=== PATIENT | male | born 1970 | race Hispanic/Latino ===

== ENCOUNTER 2020-01-30 22:17 | Emergency (ER) | payer OTHER ==
[2020-01-30] MEDS ORDERED: ASPIRIN 325 MG TABLET ONE (22:26)
[2020-01-30 22:52] LABS: BASOPHILS % (AUTO) 0.1 % (0.0-5.0); HEMATOCRIT 42.5 % (42-54); LYMPHOCYTES % (AUTO) 25.9 % (21.0-51.0); MEAN CORPUSCULAR HEMOGLOBIN 30.5 pg (27.0-33.0); MEAN CORPUSCULAR HGB CONC 34.1 g/dL (32.0-36.0); MEAN CORPUSCULAR VOLUME 89.5 fL (79-99); MONOCYTES % (AUTO) 8.8 % (3.0-13.0); NEUTROPHILS % (AUTO) 63.9 % (40.0-77.0); PLATELET COUNT (AUTO) 131 K/uL (130-400); RED BLOOD CELL COUNT(AUTO) 4.75 MIL/uL (4.50-6.20); RED CELL DISTRIBUTION WIDTH 12.6 % (11.0-15.5); WHITE BLOOD COUNT (AUTO) 7.2 K/uL (4.8-10.8)
[2020-01-30 23:05] LABS: CREATININE 0.9 mg/dL (0.5-1.5); POTASSIUM 3.3 mmol/L (3.5-5.1)
[2020-01-30 23:08] LABS: INR 0.95 (0.85-1.15); PARTIAL THROMBOPLASTIN TIME 29.6 SEC (26.3-35.5); PROTHROMBIN TIME 10.3 SEC (9.6-11.6)
[2020-01-30 23:10] LABS: ALBUMIN 3.5 g/dL (3.5-5.0); BILIRUBIN,TOTAL 0.3 mg/dL (0.2-1.0)
[2020-01-30 23:25] LABS: B-TYPE NATRIURETIC PEPTIDE 37 pg/mL (0-100)
[2020-01-30] MEDS ORDERED: MAG HYDROX/AL HYDROX/SIMETH ES 30 ML SUSP UDCUP ONE (23:38)
[2020-01-30] MEDS ORDERED: LIDOCAINE HCL 2% VISCOUS 15 ML UDCUP ONE (23:38)
[2020-01-30] MEDS ORDERED: PANTOPRAZOLE SODIUM 40 MG TABLET.DR ONE (23:39)
[2020-01-30] MEDS ORDERED: ONDANSETRON ODT 4 MG TAB ONE (23:39)
[2020-01-30] MEDS ORDERED: FAMOTIDINE 20MG TAB 20 MG TAB ONE (23:39)
== END 2020-01-31 00:22 | disposition home or self-care (01) ==
LOC: EDH 22:17
DX: R10.13 Epigastric pain (principal); Z91.041 Radiographic dye allergy status
CPT/HCPCS: 36415; 71045; 80053; 82550; 83880; 84484; 85025; 85610; 85730; 93005

== ENCOUNTER 2024-06-24 07:48 | Emergency (ER) | payer OTHER ==
[~2024-06-24] VITALS: Ht 170.2 cm; Wt 108.0 kg
--- NOTE | 2024-06-24 09:03 | ERN ---
General Chief Complaint: Nausea,Vomiting,Diarrhea Stated Complaint: VOMITING Time Seen by MD: 07:50 History of Present Illness Initial Comments 54-year-old male, history of an abdominal cancer with metastasis throughout the abdomen (possibly adenocarcinoma, possibly on appendiceal mass) presents for on and off nausea and vomiting for the last couple of weeks. Patient reports he had a sandwich and he had vomiting for few days, it improved but now the vomiting has returned. He reports epigastric discomfort. No diarrhea. No fevers. He does report some abdominal cramping in the epigastric area. Surgical history: Nephrectomy Primary doctor: Trina Allergies: Coded Allergies: Iodinated Contrast Media (Unverified Allergy, Unknown, 06/24/24) Home Meds Active Scripts Metoclopramide HCl (Reglan 10 mg Tab) 10 Mg Tablet, 1 TAB PO QID for 10 Days, #30 TAB 0 Refills Prov:PAVEL OLIVERA DO 06/24/24 Ondansetron (Ondansetron Odt) 4 Mg Tab.rapdis, 1 TAB PO Q6HPRN PRN for nausea/vomiting for 5 Days, #15 TAB 0 Refills Prov:PAVEL OLIVERA DO 06/24/24 Past Medical History Past Medical History: Cancer, High Cholesterol Past Surgical History: None ROS Dictation CONSTITUTIONAL: No chills, no fever, no weakness, no diaphoresis, no malaise. HEAD/FACE: No signs of trauma. EENT: No eye pain, no blurred vision, no tearing, no double vision, no ear pain, no ear discharge, no nose pain, no nasal congestion, no throat pain, no throat swelling, no mouth pain. RESPIRATORY: No cough, no orthopnea, no SOB, no stridor, no wheezing. CARDIOVASCULAR: No chest pain, no edema, no palpitations, no syncope. GASTROINTESTINAL/ABDOMINAL: Nausea, vomiting epigastric pain GENITOURINARY: No abnormal discharge, no dysuria, no frequent urination, no hematuria. No complaints of pain in the genitals. MUSCULOSKELETAL: No back pain, no gout, no joint pain, no joint swelling, no muscle pain, no muscle stiffness, no neck pain. INTEGUMENTARY: No change in color, no change in hair/nails, no dryness, no lesion, no lumps, no rash. NEUROLOGICAL/PSYCH: No anxiety, not depressed, no emotional problem, no headache, no numbness, no pre-existing deficit, no history of seizures, no tremors, no weakness. HEMATOLOGIC/LYMPHATIC: Not anemic, no history of blood clots, no apparent bleeding, no bruising, glands not swollen. All Systems Negative, Except as Noted. Physical Exam Physical Exam Dictation VITAL SIGNS: Reviewed. GENERAL APPEARANCE: Alert, oriented x3, no acute distress, obese. HEAD AND FACE: Non-traumatic. EYES: PERRL, pink conjunctivas, eyelid no trauma, anterior chamber clear. EARS: Pinnas intact and no signs of trauma or erythema. Ear canals clear and no discharge. TMs no erythema. NOSE: No discharge, no bleeding. OROPHARYNX: Mouth normal, teeth no caries, tongue pink. Pharynx clear, no erythema. Tonsils no exudates, no abscesses noted. Mucous membrane moist. NECK: Supple, non-tender, no thyromegaly, no masses, no JVD, no bruits. BREAST: Deferred. CHEST: No tenderness, no crepitus, no paradoxical movement, no retractions. LUNGS: Clear, well-ventilated, symmetric, no rales, no wheezing, no rhonchi, no stridor, good breath sounds bilaterally. HEART: Regular rate, regular rhythm, no murmur, no gallops. VASCULAR: No peripheral edema. ABDOMEN: Soft, positive bowel sounds, nondistended, no guarding, nontender, no rebound, no masses no hepatomegaly, no splenomegaly, no Girard's sign, no hernias. RECTAL: Deferred. GENITAL: Deferred. NEUROLOGICAL: Normal speech, gross motor function intact, gross sensory function intact. MUSCULOSKELETAL: Neck nontender, full range of motion, back nontender, full range of motion. EXTREMITIES: Nontender, full range of motion. SKIN: Color pink, dry, no turgor, no rash, no lacerations, no abrasions, no contusions. LYMPHATICS: Deferred. Results Laboratory and Microbiology Lab and Micro Result Laboratory Tests Test 06/24/24 09:00 White Blood Count 8.9 K/uL (4.8-10.8) Red Blood Count 5.05 MIL/uL (4.50-6.20) Hemoglobin 15.2 g/dL (14.0-18.0) Hematocrit 46.0 % (42-54) Mean Corpuscular Volume 91.1 fL (79-99) Mean Corpuscular Hemoglobin 30.1 pg (27.0-33.0) Mean Corpuscular Hemoglobin Concent 33.0 g/dL (32.0-36.0) Red Cell Distribution Width 12.9 % (11.0-15.5) Platelet Count 157 K/uL (130-400) Mean Platelet Volume 10.2 fL (7.5-10.5) Immature Granulocyte % (Auto) 0.5 % (0-1) Neutrophils (%) (Auto) 84.7 % (40.0-77.0) H Lymphocytes (%) (Auto) 9.8 % (21.0-51.0) L Monocytes (%) (Auto) 4.7 % (3.0-13.0) Eosinophils (%) (Auto) 0.1 % (0.0-8.0) Basophils (%) (Auto) 0.2 % (0.0-5.0) Neutrophils # (Auto) 7.5 K/uL (1.8-7.7) Lymphocytes # (Auto) 0.9 K/uL (1.0-4.8) L Monocytes # (Auto) 0.4 K/uL (0.1-1.0) Eosinophils # (Auto) 0.01 K/uL (0.00-0.70) Basophils # (Auto) 0.02 K/uL (0.00-0.20) Absolute Immature Granulocyte (auto 0.04 K/uL (0-1) Nucleated Red Blood Cells 0.0 % (0.0-0.19) White Cell Morphology Comment See comments Sodium Level 141 mmol/L (136-145) Potassium Level 4.4 mmol/L (3.5-5.1) Chloride Level 105 mmol/L (101-111) Carbon Dioxide Level 32 mmol/L (21-32) Blood Urea Nitrogen 13 mg/dL (7-18) Creatinine 1.0 mg/dL (0.5-1.3) Glomerular Filtration Rate Calc 89 mL/min (>90) Random Glucose 130 mg/dL (70-105) H Total Calcium 9.4 mg/dL (8.5-10.1) Total Bilirubin 0.7 mg/dL (0.2-1.0) Direct Bilirubin 0.1 mg/dL (0.0-0.3) Aspartate Amino Transf (AST/SGOT) 39 U/L (10-37) H Alanine Aminotransferase (ALT/SGPT) 47 U/L (12-78) Alkaline Phosphatase 113 U/L (50-136) Total Creatine Kinase 140 U/L (21-232) # Troponin I High Sensitivity < 4 ng/L (4-75) L Total Protein 7.9 g/dL (6.0-8.3) Albumin 3.9 g/dL (3.5-5.0) Lipase 41 U/L (16-77) MDM CC: Generalized abdominal discomfort and vomiting Historian: Patient Comorbidities: Obesity almost history cancer on Keytruda Limitations by social determinants of health: None Differential diagnosis: Very wide, electrolyte abnormalities, dehydration, she should call pathology, SBO, biliary pathology, pancreatitis, other. Labs are unremarkable. The CBC shows a left shift but no leukocytosis. BNP is normal. Liver enzymes are all normal. CK is normal. Troponins normal. Lipase is normal. CT scan of the abdomen and pelvis per my independent interpretation shows no free air, no free fluid, no life-threatening pathology. Patient received IV fluids and Zofran in the ER. Patient is p.o. tolerant overall nontoxic were all looks very well. Low suspicion for bowel obstruction or any other life threats. Patient is safe for follow up with Dr. Brooke as an outpatient. Please note that there was a very long delay in care here in the ER because the ER was overloaded, there was heavy boarding, and there was a delay in getting the CT scan with readings. REASON: ABD PAIN ORDERING PHYSICIAN: PAVEL OLIVERA DO PROCEDURE: ABD PEL WO - CT ABDOMEN/PELVIS W/O CONTRAST CT ABDOMEN/PELVIS W/O CONTRAST HISTORY: Abdominal pain COMPARISON: None TECHNIQUE: Multiple sequential axial images of the abdomen and pelvis were obtained from the dome of the diaphragm through symphysis pubis. Patient was not given contrast through intravenous route. Oral contrast was not given. FINDINGS: No pleural effusion is seen bilaterally. There is no evidence of parenchymal disease or pulmonary nodule of the visualized lower lungs. Degenerative changes of the thoracolumbar spine are present. The heart is not enlarged. Gastric distention is seen. Small bowel dilatation is seen. Gallbladder distention is seen. Pancreatic head is prominent measuring 4.1 cm. There is diverticulosis. The liver, spleen, adrenal glands and pancreas are unremarkable. There is no evidence of hydronephrosis bilaterally. There is 7 mm right renal pelvic stone. Fecal material is seen in the colon. There is retroperitoneal mesenteric adenopathy with the largest lymph node in the retroperitoneum and periaortic region measuring 2.5 cm. No ascites is seen. Atherosclerotic changes are present. Pelvic sidewalls are symmetric bilaterally. Bladder is well distended without wall thickening. IMPRESSION: 1. Enlarged pancreatic head. Retroperitoneal mesenteric adenopathy. No ascites. ED Course Orders Procedure Category Date Status Time Cbc With Differential LAB 06/24/24 Complete 08:35 Troponin I High LAB 06/24/24 Complete Sensitivity 08:35 Stool Panel Gi By Pcr LAB 06/24/24 Logged 08:35 0.9%Nacl 1000ml (Ns PHA 06/24/24 Complete 1000ml) 09:00 Ondansetron 4mg Inj PHA 06/24/24 Complete (Zofran 4mg Inj) 09:00 Creatine Kinase, Total LAB 06/24/24 Complete 08:35 Lipase LAB 06/24/24 Complete 08:35 Basic Metabolic Panel LAB 06/24/24 Complete 08:35 Hepatic Function Panel LAB 06/24/24 Complete 08:35 Ct Abdomen/Pelvis W/O CT 06/24/24 Resulted Contrast 14:37 Current Medications Medications (Trade) Dose Ordered Sig/Deb Route PRN Reason Start Time Stop Time Status Last Admin Dose Admin Ondansetron HCl (zoFRAN 4MG INJ) 4 mg ONCE ONCE IVP 06/24/24 09:00 06/24/24 09:01 DC 06/24/24 12:59 Sodium Chloride 1,000 ml @ 0 mls/hr ONCE ONCE IV 06/24/24 09:00 06/24/24 09:01 DC 06/24/24 13:00 Vital Signs Date Time Temp Pulse Resp B/P (MAP) Pulse Ox O2 Delivery O2 Flow Rate FiO2 06/24/24 15:59 98.2 85 18 137/88 99 Room Air* 0 21 06/24/24 07:49 98.2 92 20 146/103 99 Room Air DX & DISP Disposition: Discharge Departure Impression: Primary Impression: Vomiting Condition: Stable Scripts Metoclopramide HCl (Reglan 10 mg Tab) 10 Mg Tablet 1 TAB PO QID for 10 Days, #30 TAB 0 Refills Prov: PAVEL OLIVERA DO 06/24/24 Ondansetron (Ondansetron Odt) 4 Mg Tab.rapdis 1 TAB PO Q6HPRN PRN for nausea/vomiting for 5 Days, #15 TAB 0 Refills Prov: PAVEL OLIVERA DO 06/24/24 Additional Instructions: There are no dangerous findings on your workup here today. Your blood work is unremarkable. The CT scan of your abdomen pelvis shows no signs of obstruction. I have prescribed ondansetron dissolvable tabs and Reglan to use as needed for nausea and vomiting. You can alternate these medicines as needed. As we discussed, eat frequent small meals rather than large meals. Do not eat late at night. Please follow up with Dr. Brooke within a week or so for re-evaluation if you continue with symptoms. Referrals: LETICIA BROOKE MD (PCP) PAVEL OLIVERA DO Jun 24, 2024 09:03
[2024-06-24 09:18] LABS: BASOPHILS # (AUTO) 0.02 K/uL (0.00-0.20); BASOPHILS % (AUTO) 0.2 % (0.0-5.0); EOSINOPHILS # (AUTO) 0.01 K/uL (0.00-0.70); EOSINOPHILS % (AUTO) 0.1 % (0.0-8.0); IMMATURE GRANULOCYTE ABSOLUTE 0.04 K/uL (0-1); LYMPHOCYTES # (AUTO) 0.9 K/uL (1.0-4.8); LYMPHOCYTES % (AUTO) 9.8 % (21.0-51.0); MEAN CORPUSCULAR HEMOGLOBIN 30.1 pg (27.0-33.0); MEAN CORPUSCULAR VOLUME 91.1 fL (79-99); MONOCYTES # (AUTO) 0.4 K/uL (0.1-1.0); MONOCYTES % (AUTO) 4.7 % (3.0-13.0); NEUTROPHILS # (AUTO) 7.5 K/uL (1.8-7.7); NEUTROPHILS % (AUTO) 84.7 % (40.0-77.0); PLATELET COUNT (AUTO) 157 K/uL (130-400); RED BLOOD CELL COUNT(AUTO) 5.05 MIL/uL (4.50-6.20); RED CELL DISTRIBUTION WIDTH 12.9 % (11.0-15.5); WHITE BLOOD COUNT (AUTO) 8.9 K/uL (4.8-10.8)
[2024-06-24 09:25] LABS: POTASSIUM 4.4 mmol/L (3.5-5.1)
[2024-06-24 09:30] LABS: ALBUMIN 3.9 g/dL (3.5-5.0); BILIRUBIN,DIRECT 0.1 mg/dL (0.0-0.3); BILIRUBIN,TOTAL 0.7 mg/dL (0.2-1.0); TOTAL PROTEIN, SERUM 7.9 g/dL (6.0-8.3)
[2024-06-24] MEDS: ondanSETRON 4MG INJ IVP ONE (12:59)
[2024-06-24] MEDS: 0.9%NACL 1000ML 1,000 ML IV ONE (13:00)
--- NOTE | 2024-06-24 13:00 | NUR ---
MOVED PT INTO INTERNAL WAITING AREA FOR IV INSERTION AND ADM ANTIEMETIC AND NS.
--- NOTE | 2024-06-24 15:37 | HMCIMG ---
CT ABDOMEN/PELVIS W/O CONTRAST HISTORY: Abdominal pain COMPARISON: None TECHNIQUE: Multiple sequential axial images of the abdomen and pelvis were obtained from the dome of the diaphragm through symphysis pubis. Patient was not given contrast through intravenous route. Oral contrast was not given. FINDINGS: No pleural effusion is seen bilaterally. There is no evidence of parenchymal disease or pulmonary nodule of the visualized lower lungs. Degenerative changes of the thoracolumbar spine are present. The heart is not enlarged. Gastric distention is seen. Small bowel dilatation is seen. Gallbladder distention is seen. Pancreatic head is prominent measuring 4.1 cm. There is diverticulosis. The liver, spleen, adrenal glands and pancreas are unremarkable. There is no evidence of hydronephrosis bilaterally. There is 7 mm right renal pelvic stone. Fecal material is seen in the colon. There is retroperitoneal mesenteric adenopathy with the largest lymph node in the retroperitoneum and periaortic region measuring 2.5 cm. No ascites is seen. Atherosclerotic changes are present. Pelvic sidewalls are symmetric bilaterally. Bladder is well distended without wall thickening. IMPRESSION: 1. Enlarged pancreatic head. Retroperitoneal mesenteric adenopathy. No ascites. CT was performed with one or more following dose reduction techniques: automated exposure control, adjustment of the mA and kv according to patient's size, or use of a iterative reconstruction technique.
[2024-06-24] MEDS ORDERED: METO10TA41 PO (15:50)
[2024-06-24] MEDS ORDERED: ONDA-243 PO (15:50)
[2024-06-24 15:59] VITALS: BP 137/88; PULSE 85; RESP 18; TEMP 98.2; O2SAT 99
== END 2024-06-24 16:05 | disposition home or self-care (01) ==
LOC: EDH 07:48
DX: R11.10 Vomiting, unspecified (principal); E66.9 Obesity, unspecified; E78.00 Pure hypercholesterolemia, unspecified; Z79.899 Other long term (current) drug therapy; Z91.041 Radiographic dye allergy status
CPT/HCPCS: 99285; 74176; 96374; 96361; 82550; 80076; 84484; 80048; 83690; 85025; 36415; J7030; J2405